=== PATIENT | male | born 1985 | race Caucasian/White ===

== ENCOUNTER 2018-01-28 04:22 | Emergency (ER) | payer MEDICAID ==
[~2018-01-28] VITALS: Ht 182.9 cm; Wt 90.9 kg
[~2018-01-28 04:22] MED LIST: DOCU100C40 PO; HYDR-569 PO; [UNRECOGNIZED DRUG - CODE] MC
[2018-01-28] MEDS ORDERED: cephalexin 250mg capsule PO ONE (05:10)
[2018-01-28] MEDS ORDERED: HYDROcodone/acetaminophen 10/325mg tab PO ONE (05:10)
[2018-01-28] MEDS ORDERED: TETanus/Pertussis (Acell)/Diphther VAC/PF (Tdap-Adult) 0.5ml syringe IMVAC ONE (05:10)
[2018-01-28] MEDS ORDERED: morphine 4 MG/ML inj SYRINge IV ONE (06:15)
[2018-01-28] MEDS ORDERED: LIDOcaine 1% 30ml preserv. free vial IJ ONE (06:55)
[2018-01-28] MEDS ORDERED: LORazepam 2 mg/ml vial IV ONE (07:15)
[2018-01-28] MEDS ORDERED: HYDR-3965 PO (09:01)
[2018-01-28] MEDS ORDERED: CEPH500C5 PO (09:01)
[2018-01-28] MEDS ORDERED: cephalexin 500mg capsule PO ONE (09:05)
[2018-01-28 09:57] VITALS: BP 132/83
== END 2018-01-28 09:42 | disposition home or self-care (01) ==
LOC: ER 04:22
DX: S61.012A Laceration without foreign body of left thumb without damage to nail, initial encounter (principal); F17.200 Nicotine dependence, unspecified, uncomplicated; F11.10 Opioid abuse, uncomplicated; Z88.5 Allergy status to narcotic agent; Z79.899 Other long term (current) drug therapy; W26.0XXA Contact with knife, initial encounter; Y93.89 Activity, other specified; Y92.89 Other specified places as the place of occurrence of the external cause; Y99.8 Other external cause status
CPT/HCPCS: 12002; 73130; 90471; 90715; 96374; 99284; A6449; J2060; J3490

== ENCOUNTER 2021-05-25 07:08 | Emergency (ER) | payer MEDICAID ==
[~2021-05-25] VITALS: Ht 182.9 cm; Wt 90.9 kg
[~2021-05-25 07:08] MED LIST changes: +HYDR-4383 PO; -HYDR-569 PO
[2021-05-25 07:39] VITALS: BP 119/67
[2021-05-25] MEDS ORDERED: DOXY100C43 PO (07:56)
[2021-05-25] MEDS ORDERED: CEPH-585 PO (07:56)
== END 2021-05-25 09:00 | disposition home or self-care (01) ==
LOC: ER 07:09
DX: L03.116 Cellulitis of left lower limb (principal); M25.572 Pain in left ankle and joints of left foot; F11.90 Opioid use, unspecified, uncomplicated; Z88.5 Allergy status to narcotic agent; Z79.899 Other long term (current) drug therapy
CPT/HCPCS: 99283

== ENCOUNTER 2024-12-03 19:14 | Emergency (ER) | payer MEDICAID ==
[~2024-12-03] VITALS: Ht 182.9 cm; Wt 103.4 kg
[2024-12-03 19:49] LABS: BASOPHILS % (AUTO) 0.4 % (0-1); EOSINOPHILS # (AUTO) 0.1 X10'3 (0-0.9); HEMATOCRIT 37.3 % (42.0-52.0); LYMPHOCYTES # (AUTO) 0.4 X10'3 (1.1-4.8); MEAN CORPUSCULAR HEMOGLOBIN 30.6 PG (27.0-31.0); MEAN CORPUSCULAR HGB CONC 34.8 g/dL (33.0-36.5); MEAN CORPUSCULAR VOLUME 87.9 FL (78-98); MEAN PLATELET VOLUME 6.8 FL (7.4-10.4); MONOCYTES # (AUTO) 0.7 X10'3 (0-0.9); MONOCYTES % (AUTO) 11.9 % (2-12); NEUTROPHILS # (AUTO) 4.3 X10'3 (1.8-7.7); NEUTROPHILS % (AUTO) 78.7 % (42-75); PLATELET COUNT 211 X10'3 (140-440); RED BLOOD COUNT 4.24 X10'6 (4.70-6.10); RED CELL DISTRIBUTION WIDTH 13.3 % (11.5-14.5); WHITE BLOOD COUNT 5.5 X10'3 (4.5-11.0)
[2024-12-03 19:58] LABS: ALANINE AMINOTRANSFERASE 39 U/L (12-78); ALBUMIN 3.5 G/DL (3.4-5.0); ALBUMIN/GLOBULIN RATIO 1.1 (1.1-1.5); ALKALINE PHOSPHATASE 70 IU/L (46-116); ANION GAP 8 (8-16); ASPARTATE AMINO TRANSFERASE 32 U/L (10-37); BILIRUBIN,TOTAL 0.2 MG/DL (0.1-1.0); BLOOD UREA NITROGEN 17 MG/DL (7-18); BUN/CREATININE RATIO 12.1 (10.0-20.0); CALCIUM 8.5 MG/DL (8.5-10.1); CHLORIDE 106 MMOL/L (99-107); CREATININE 1.41 MG/DL (0.60-1.10); GLUCOSE 112 MG/DL (70-104); POTASSIUM 4.1 MMOL/L (3.5-5.1); SODIUM 140 MMOL/L (135-145); TOTAL CARBON DIOXIDE 26.4 MMOL/L (24-32); TOTAL PROTEIN 6.7 G/DL (6.4-8.2); eCRCL 77 ML/MIN; eGFR 56 ML/MIN
[2024-12-03 20:07] LABS: PRO BRAIN NATRIURETIC PEPTIDE 194 PG/ML (0-125)
[2024-12-03 21:05] VITALS: BP 112/64; PULSE 71; O2SAT 98
[2024-12-03] MEDS ORDERED: TAM75C PO (21:36)
[2024-12-03] MEDS ORDERED: ONDA-245 PO (21:36)
[2024-12-03] MEDS: ondansetron 4mg rapidly disintigrating tab PO ONE (21:36)
[2024-12-03 21:50] VITALS: TEMP 99.9
[2024-12-03 21:57] VITALS: RESP 18
== END 2024-12-03 21:59 | disposition home or self-care (01) ==
LOC: ER 19:15
DX: J11.1 Influenza due to unidentified influenza virus with other respiratory manifestations (principal); Z88.5 Allergy status to narcotic agent
CPT/HCPCS: 36415; 71045; 80053; 83880; 84484; 85025; 93005; 99285